=== PATIENT | female | born 1970 | race Caucasian/White ===

== ENCOUNTER → 2017-04-28 | Outpatient (CLI) | payer BC ==
[2017-04-28 13:22] LABS: Anisocytosis Slight; Basophils # (A) 0.1 k/uL (0-0.2); Basophils % (A) 1 %; CH 24.7; CHCM 30.5; Eosinophils # (A) 0.2 k/uL (0-0.7); Eosinophils % (A) 2 %; HCT 37.8 % (34.0-46.0); HDW 3.33; HGB 11.2 gm/dL (11.4-16.0); Hypochromasia Marked; Luc # (Auto) 0.22; Luc % (Auto) 2; Lymphocytes # (A) 2.2 k/uL (1.0-4.8); Lymphocytes % (A) 21 %; MCH 24.1 pg (25.0-35.0); MCHC 29.5 g/dL (31.0-37.0); MCV 81.5 fL (80.0-100.0); Mean Platelet Volume 7.6; Monocytes # (A) 0.6 k/uL (0-1.0); Monocytes % (A) 5 %; Neutrophils # (A) 7.5 k/uL (1.3-7.7); Neutrophils % (A) 70 %; RBC 4.64 m/uL (3.80-5.40); RDW 17.3 % (11.5-15.5); WBC 10.8 k/uL (3.8-10.6); WBC (Perox) 10.69
== END | disposition home or self-care (01) ==
LOC: LABPAT 12:00
PROVIDERS: ATTEND Obstetrics & Gynecology
DX: Z01.810 Encounter for preprocedural cardiovascular examination (principal); Z01.812 Encounter for preprocedural laboratory examination; I10 Essential (primary) hypertension; N92.0 Excessive and frequent menstruation with regular cycle
CPT/HCPCS: 85025; 93005

== ENCOUNTER 2017-05-09 08:43 | Day surgery (SDC) | payer BC ==
[2017-05-02 08:43] VITALS: BMI 56.2
--- NOTE | 2017-05-08 12:50 | HP ---
HISTORY AND PHYSICAL This is a 46-year-old, white female, 2, para 2, 0-0-1 who presents for NovaSure endometrial ablation along with hysteroscopy. The patient has had a tubal ligation. Menses are regular, occurring every 28-30 days, but last up to 8 days in duration, very heavy with clot passage. Endometrial biopsy has been performed in the office and is within normal limits. Risks, benefits and alternatives of this plan have been reviewed, information in terms of literature has been provided and reviewed, second opinion has been offered and declined. PAST MEDICAL HISTORY: Significant for hypertension. PAST SURGICAL HISTORY: Knee surgery 2005, tubal ligation, 1993. CURRENT MEDICATIONS: 1. Hyzaar daily. 2. Toprol-XL daily. ALLERGIES: INCLUDE BACTRIM TO WHICH REPORTS HIVES AND CANNOT BREATHE, CIPROFLOXACIN TO WHICH REPORTS HIVES AND FEELS LIKE NEEDLES IN THE FACE, AND MOBIC TO WHICH REPORTS A REDDENED FACE, PENICILLIN TO WHICH REPORTS HIVES AND SWELLING AND NOT BEING ABLE TO BREATHE, STEROIDS TO WHICH REPORTS HIVES AND NOT BEING ABLE TO BREATHE, AND SULFA DRUGS TO WHICH SHE REPORTS THE SAME REACTION. FAMILY HISTORY: Significant for hypertension. REPRODUCTIVE HISTORY: Normal spontaneous vaginal deliveries x2, female infants, 1992 in 1993, both uncomplicated. SOCIAL HISTORY: Patient drinks 2 cups of coffee daily. He has never been a tobacco smoker, denies alcohol or drug use. EXAM: This is a pleasant female, 5 foot 2 inches, 298 pounds, blood pressure 140/86. HEENT exam reveals good dentition, no thyromegaly, no cervical lymphadenopathy. CHEST: Clear to auscultation in all jerome anteriorly and posteriorly. The breasts are bilaterally symmetric to inspection with no skin dimpling, nipple discharge, axillary adenopathy or discernible lesions or masses. Extremities reveal no edema. Abdomen is obviously obese, no organosplenomegaly, no CVA tenderness. On pelvic exam, cervix is multiparous, uterus is small, anteverted, anteflexed, adnexa are negative bilaterally, smooth mobile and nontender, small and bilaterally symmetric. IMPRESSION: Dysmenorrhea, and menorrhagia, patient wishing NovaSure ablation and hysteroscopy. PLAN: All risks and benefits of this procedure have been reviewed in detail. We discussed the risks of anesthesia, aspiration, nerve damage, or even . The risk of uterine perforation, infection, bleeding, damage to the cervix, failure of the procedure all discussed. All questions answered and literature provided for the patient's thorough review. MMODL / IJN: [id number] /
[~2017-05-09 08:43] MED LIST: DEXAMETHASONE SOD PHOSPHATE 10 MG/ML 1 ML VIAL IV ONE; HYDROmorphone 0.5 MG/0.5 ML SYRINGE IVP PRN; LACTATED RINGERS 1,000 ML IV SCH; ONDANSETRON 4 MG/2 ML VIAL IVP ONE; Pre Op ABX Message 1 EACH MISC MISCELLANE ONE
[2017-05-09] MEDS ORDERED: LIDOCAINE 1% 20 ML VIAL (10MG/ML) FOR IV START INTRADERMA ONE (09:57)
[2017-05-09] MEDS ORDERED: PROPOFOL 10 MG/ML 20 ML VIAL IV ONE (10:12)
[2017-05-09] MEDS ORDERED: fentaNYL (PF) 50 MCG/ML 2 ML AMP ONE (10:12)
[2017-05-09] MEDS ORDERED: LIDOCAINE 1% INJ 10MG/ML (20 ML MDV) ONE (10:12)
[2017-05-09] MEDS ORDERED: KETOROLAC 30 MG/ML 1 ML VIAL ONE (10:12)
[2017-05-09] MEDS ORDERED: SUCCINYLCHOLINE CHLORIDE VIAL 200 MG/10 ML VIAL IV ONE (10:12)
[2017-05-09] MEDS ORDERED: MIDAZOLAM 2 MG/2 ML VIAL ONE (10:12)
--- NOTE | 2017-05-09 10:36 | P.OP ---
Date of Procedure: 05/09/17 Preoperative Diagnosis: Menorrhagia Postoperative Diagnosis: Same Procedure(s) Performed: Hysteroscopy, NovaSure ablation Anesthesia: ERUM Surgeon: Pamella Palacios Estimated Blood Loss (ml): 5 IV fluids (ml): 300 Urine output (ml): 100 Pathology: none sent Condition: stable Disposition: PACU Description of Procedure: Patient is brought to the [facility] and suite where a general anesthetic is administered without difficulty. The appropriate timeout is performed to assure proper patient and procedural identification. Urine hCG is negative. Bladder is drained for approximately 100 mL of clear yellow urine. Perineal body is prepped and draped in usual sterile fashion. Examination under anesthesia reveals an anteverted uterus that is mobile and small, negative adnexa bilaterally. Uterus sounds to a depth of 8 cm. Cervix is gently and systematically dilated using Hanks dilators. The hysteroscope was introduced and the cavity is distended. The cavity is noted to contain a small amount of proliferative-type appearing tissue, no obvious polyps septa or defects. Hysteroscope was removed. Cervix is then dilated fully. The NovaSure wand is placed and seated properly. Uterine length of 6.0 cm, width of 2.7 cm is noted. For 99 seconds with a power of 89 W the procedure is carried out. When it is completed, the wand is reduced and removed. Hysteroscope is reintroduced and the cavity is once again distended. The cavity is noted to be uniformly blanched consistent with thorough procedure. Toradol is given prior to leaving the operative suite. MENTATION is removed. All sponge needle and enhancement counts are correct. Patient is brought back to recovery room in stable condition with a blood pressure of 99/43, pulse 53, 99% O2 saturation. Competitions none.
[2017-05-09 10:57] VITALS: TEMP 98.6
[2017-05-09 12:56] VITALS: BP 127/60; PULSE 55; RESP 20
== END 2017-05-09 13:01 | disposition home or self-care (01) ==
LOC: OR 08:43
PROVIDERS: ATTEND Obstetrics & Gynecology
DX: N92.0 Excessive and frequent menstruation with regular cycle (principal); N94.6 Dysmenorrhea, unspecified; I10 Essential (primary) hypertension; E66.01 Morbid (severe) obesity due to excess calories; Z68.43 Body mass index [BMI] 50.0-59.9, adult; Z79.899 Other long term (current) drug therapy; Z88.1 Allergy status to other antibiotic agents; Z88.0 Allergy status to penicillin; Z88.2 Allergy status to sulfonamides; Z82.49 Family history of ischemic heart disease and other diseases of the circulatory system; Z98.51 Tubal ligation status
CPT/HCPCS: 58563; 81025; J2250; J0330; J1100; J2405; J2001; J3010; J1885; J2704; J1170

== ENCOUNTER → 2018-09-04 | Outpatient (CLI) | payer BC ==
--- NOTE | 2018-09-04 12:52 | MM ---
Reason for exam: screening (asymptomatic). Baseline mammogram. History: Family history of breast cancer in sister at age 40. Physical Findings: Nurse did not find any significant physical abnormalities on exam. MG Screening Mammo w CAD Bilateral CC and MLO view(s) were taken. The breast tissue is heterogeneously dense. This may lower the sensitivity of mammography. There are benign appearing round calcifications in the left breast. There is chronic nodularity in the left breast upper outer quadrant middle depth. These results were verbally communicated with the patient and result sheet given to the patient on 09/04/18. ASSESSMENT: Incomplete: need additional imaging evaluation, BI-RAD 0 RECOMMENDATION: Ultrasound of the left breast.
--- NOTE | 2018-09-04 12:55 | USB ---
Reason for exam: additional evaluation requested from abnormal screening. History: Family history of breast cancer in sister at age 40. Physical Findings: Breast exam preformed at baseline screening. US Breast Workup Limited LT Left limited breast ultrasound including focal area of concern, retroareolar and axilla demonstrates a 0.7 x 0.5 x 0.5cm oval, taller than wide, hypoechoic lesion at 12 o'clock for which a biopsy is recommended, a 1.1 x 1.8 x 0.5cm oval, solid, benign lymph node at 1 o'clock and a 0.5 x 0.3 x 0.4cm cystic lesion at 2 o'clock. These results were verbally communicated with the patient and result sheet given to the patient on 09/04/18. ASSESSMENT: Suspicious, BI-RAD 4 RECOMMENDATION: Ultrasound core biopsy of the left breast. Called Dr. Medrano with mammographic findings and has scheduled an appointment for the patient for 09/14/18 at 9:[address] Egan. Biopsy scheduled for 09/26/18 at 12:20. PRELIMINARY REPORT CALLED AND FAXED TO DR. EGAN ON 09/04/18.
== END | disposition home or self-care (01) ==
LOC: RADMAMWWP 09:17
PROVIDERS: ATTEND Nurse Practitioner Family
DX: Z12.31 Encounter for screening mammogram for malignant neoplasm of breast (principal); R92.8 Other abnormal and inconclusive findings on diagnostic imaging of breast
CPT/HCPCS: 77067

== ENCOUNTER → 2018-09-14 | Outpatient (CLI) | payer BC ==
[2018-09-14 09:35] VITALS: BP 166/85; PULSE 75; RESP 18; TEMP 96.5; BMI 43.8
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
== END | disposition home or self-care (01) ==
LOC: WWCWWP 09:07
PROVIDERS: ATTEND Surgery
DX: Z53.9 Procedure and treatment not carried out, unspecified reason (principal)

== ENCOUNTER → 2018-09-26 | Day surgery (SDC) | payer BC ==
[2018-09-26 12:28] VITALS: RESP 16
--- NOTE | 2018-09-26 14:01 | USB ---
EXAMINATION TYPE: US breast needle loc LT DATE OF EXAM: 09/26/2018 COMPARISON: Ultrasound 09/04/2018 CLINICAL HISTORY: R92.8 ABNORMAL MAMMOGRAM. Abnormal ultrasound Technique: Real-time linear array sonography the hypodensity is reidentified in the left breast 12:00 posterior position. This currently measures approximately 0.6 cm x 0.7 x 0.6 cm this appears to have some through transmission and potentially could be a cyst. Cyst aspiration reattempted. If unsuccessful core biopsy will be performed. The procedure was explained to the patient, cyst aspiration and core biopsy. All questions were answered. Verbal informed consent was obtained. Timeout was performed Skin was cleansed with Betadine and sterilely draped in standard manner. The skin and deeper breast tissue was anesthetized with 1% lidocaine with sodium bicarbonate. Under ultrasound guidance an 18-gauge needle was advanced into the anechoic lesion. The contents were aspirated. The area appeared to collapse completely during the aspiration. Contents were transferred to pathology for additional evaluation. Coil Clip was placed at the cyst aspiration site. Discharge instructions were discussed with the patient. The patient tolerated the procedure very well. Patient will follow-up with her referring physician for results. Postprocedure mammogram: Mammogram was obtained. Clip is in the mid breast on these images. Impressions: 1. Successful ultrasound-guided cyst aspiration. Recommendations 1. Recommendations are pending pathology results. IMPRESSION: Pathology Results: Benign LEFT BREAST, ULTRASOUND GUIDED ASPIRATION: Minimally cellular specimen consisting of widely scattered macrophages, degenerated cellular material and a fragment of adipose tissue. Non-diagnostic. Recommendation Follow up mammogram and ultrasound of the left breast in 6 months. APOLONIA
--- NOTE | 2018-09-26 14:03 | MM ---
EXAMINATION TYPE: US breast aspiration single LT DATE OF EXAM: 09/26/2018 COMPARISON: Ultrasound 09/04/2018 CLINICAL HISTORY: R92.8 ABNORMAL MAMMOGRAM. Abnormal ultrasound Technique: Real-time linear array sonography the hypodensity is reidentified in the left breast 12:00 posterior position. This currently measures approximately 0.6 cm x 0.7 x 0.6 cm this appears to have some through transmission and potentially could be a cyst. Cyst aspiration reattempted. If unsuccess ful core biopsy will be performed. The procedure was explained to the patient, cyst aspiration and core biopsy. All questions were answe red. Verbal informed consent was obtained. Timeout was performed Skin was cleansed with Betadine and sterilely draped in standard manner. The skin and deeper breast t issue was anesthetized with 1% lidocaine with sodium bicarbonate. Under ultrasound guidance an 18-gau ge needle was advanced into the anechoic lesion. The contents were aspirated. The area appeared to co llapse completely during the aspiration. Contents were transferred to pathology for additional evalua tion. Coil Clip was placed at the cyst aspiration site. Discharge instructions were discussed with the patient. The patient tolerated the procedure very well . Patient will follow-up with her referring physician for results. Postprocedure mammogram: Mammogram was obtained. Clip is in the mid breast on these images. This appe ars to be at a rounded density on the Comparison Mammogram of 09/04/2018. Impressions: 1. Successful ultrasound-guided cyst aspiration. Recommendations 1. Recommendations are pending pathology results.
[2018-09-26 14:09] VITALS: BP 116/76; PULSE 64; TEMP 97.5
== END ==
LOC: RADUSWWP 12:16
PROVIDERS: ATTEND Surgery
DX: N60.02 Solitary cyst of left breast (principal)
CPT/HCPCS: 19285; 88108; 88305; 77065; J2001; 76942

== ENCOUNTER → 2018-10-04 | Outpatient (CLI) | payer BC ==
[2018-10-04 13:46] VITALS: BP 135/88; PULSE 66; RESP 16; TEMP 97.6; BMI 43.8
--- NOTE | 2018-10-04 14:10 | P.PN ---
Subjective Progress Note Date: 10/04/18 Principal diagnosis: Rosaura is a 48-year-old white female who is status post ultrasound-guided aspiration of the left breast lesion on . Pathology revealed a minimally cellular specimen consisting of widely scattered macrophages, degenerative cellular material, and a segment of adipose tissue. This was nondiagnostic but non-malignant. The patient has no complaints related to the procedure. After this evaluation was performed 5 year risk: 2.4% Lifetime risk was: 20.2% this evaluation was considering the ultrasound aspiration as a biopsy of this is less if this is not considered a biopsy Family history: Sr.: Breast cancer in her 40s she has had cancer in both breasts and now in her bones Father: Prostate cancer Medical history: Hypertension Objective - Vital Signs Vital signs: Vital Signs Temp 97.6 F 10/04/18 13:43 Pulse 66 10/04/18 13:43 Resp 16 10/04/18 13:43 BP 135/88 10/04/18 13:43 Pulse Ox 100 10/04/18 13:43 - Constitutional General appearance: Present: obese - EENT Eyes: Present: EOMI - Neck Neck: Present: normal ROM - Respiratory Respiratory: bilateral: CTA - Cardiovascular Rhythm: regular Heart sounds: normal: S1, S2 - Integumentary Integumentary: Present: normal turgor - Psychiatric Psychiatric: Present: A&O x's 3, appropriate affect, intact judgment & insight - Additional findings Additional findings: Examination of the left breast biopsy site reveals mild ecchymosis otherwise clean and dry Assessment and Plan Assessment: Impression: 1. Status post ultrasound-guided aspiration left breast lesion pathology benign 2. Fibrocystic breast changes 3. Strong family history of breast cancer sister with breast cancer in her 40s 4. No evidence of breast cancer at this time Plan: 1. I discussed the patient is a high risk for breast cancer given her the option of genetic counseling at this time she is declining 2. Repeat ultrasound and mammogram of the left breast in 6 months 3. Follow-up with me in 6 months CC: Dr. Urbina
== END | disposition home or self-care (01) ==
LOC: WWCWWP 13:26
PROVIDERS: ATTEND Surgery
DX: Z53.9 Procedure and treatment not carried out, unspecified reason (principal)

== ENCOUNTER 2018-11-29 12:07 | Emergency (ER) | payer BC ==
[2018-11-29 12:18] VITALS: RESP 18; TEMP 98.2
[2018-11-29] MEDS ORDERED: SODIUM CHLORIDE 0.9% 1,000 ML IV STA (12:28)
[2018-11-29] MEDS ORDERED: ONDANSETRON 4 MG/2 ML VIAL IVP STA (12:36)
[2018-11-29] MEDS ORDERED: MORPHINE SULFATE 4 MG/ML SYRINGE IVP STA (12:36)
--- NOTE | 2018-11-29 12:49 | ED ---
Abdominal Pain HPI - General Chief Complaint: Abdominal Pain Stated Complaint: Abd pain Time Seen by Provider: 11/29/18 12:22 Source: patient, RN notes reviewed Mode of arrival: ambulatory Limitations: no limitations - History of Present Illness Initial Comments: 48-year-old female presents emergency Department with chief complaint of abdominal pain. Patient states pain started earlier this week has progressed. Patient did see PCP today who sent for lab work and CT of abdomen and pelvis dialysis for Bactrim so recommend come emergency department. Patient states that the pain is diffuse in nature radiates to her back. There is no focal abdominal pain. Denies any nausea vomiting diarrhea constipation or fevers or chills. Patient has no dysuria or hematuria. Patient had prior tubal ligation exploratory laparotomy no other abdominal surgeries. Denies any sick contacts no chest pain or shortness of breath - Related Data Home Medications Medication Instructions Recorded Confirmed Losartan/Hydrochlorothiazide 1 tab PO DAILY 05/02/17 11/29/18 [Hyzaar 100-25 Tablet] Metoprolol Succinate (ER) [Toprol 50 mg PO DAILY 05/02/17 11/29/18 Xl] Atorvastatin [Lipitor] 10 mg PO DAILY 09/14/18 11/29/18 Previous Rx's Medication Instructions Recorded Hydrocodone/Acetaminophen [Sunflower 1 tab PO Q6HR PRN #12 tab 11/29/18 5-325] Allergies Allergy/AdvReac Type Severity Reaction Status Date / Time banana Allergy Unknown Verified 11/29/18 13:46 ciprofloxacin [From Cipro] Allergy "felt like Verified 11/29/18 13:46 needles under skin" Penicillins Allergy Rash/Hives Verified 11/29/18 13:46 Sulfa (Sulfonamide Allergy "felt like Verified 11/29/18 13:46 Antibiotics) needles under skin" sulfamethoxazole Allergy "felt like Verified 11/29/18 13:46 [From Bactrim] needles under skin" trimethoprim [From Bactrim] Allergy "felt like Verified 11/29/18 13:46 needles under skin" Review of Systems ROS Statement: Those systems with pertinent positive or pertinent negative responses have been documented in the HPI. ROS Other: All systems not noted in ROS Statement are negative. Past Medical History Past Medical History: Hypertension, Osteoarthritis (OA) Additional Past Medical History / Comment(s): heavy, frequent periods History of Any Multi-Drug Resistant Organisms: None Reported Past Surgical History: Orthopedic Surgery, Tubal Ligation, Uterine Ablation Additional Past Surgical History / Comment(s): arthroscopy knee Past Anesthesia/Blood Transfusion Reactions: No Reported Reaction Past Psychological History: No Psychological Hx Reported Smoking Status: Never smoker Past Alcohol Use History: Occasional Past Drug Use History: None Reported - Past Family History Sister(s) Family Medical History: Cancer Father Family Medical History: Cancer General Exam Limitations: no limitations General appearance: alert, in no apparent distress Head exam: Present: atraumatic, normocephalic, normal inspection Neck exam: Present: normal inspection, full ROM. Absent: tenderness, meningismus, lymphadenopathy Respiratory exam: Present: normal lung sounds bilaterally. Absent: respiratory distress, wheezes, rales, rhonchi, stridor Cardiovascular Exam: Present: regular rate, normal rhythm, normal heart sounds. Absent: systolic murmur, diastolic murmur, rubs, gallop, clicks GI/Abdominal exam: Present: soft, tenderness (Diffuse moderate), normal bowel sounds. Absent: distended, guarding, rebound, rigid Back exam: Absent: CVA tenderness (R), CVA tenderness (L) Skin exam: Present: warm, dry, intact, normal color. Absent: rash Course Vital Signs 11/29/18 11/29/18 11/29/18 12:16 15:45 16:00 Temperature 98.2 F Pulse Rate 74 84 Respiratory 18 18 18 Rate Blood Pressure 155/97 140/82 O2 Sat by Pulse 98 99 Oximetry Medical Decision Making - Medical Decision Making 48-year-old female presents emergency department for abdominal pain CT was obtained along with lab work CT shows bulky fibroid uterus, Ultram was recommended and ordered. Ultrasound shows thickened endometrial lining and will need follow-up with [facility]. She has seen Dr. sheth in the past and she states that she can schedule an appointment. Patient discharged with pain medication. Return parameters discussed. - Lab Data Result diagrams: 11/29/18 13:20 11/29/18 13:20 Lab Results 11/29/18 11/29/18 11/29/18 Range/Units 13:20 13:20 13:20 WBC 10.9 H (3.8-10.6) k/uL RBC 4.41 (3.80-5.40) m/uL Hgb 13.9 (11.4-16.0) gm/dL Hct 41.4 (34.0-46.0) % MCV 94.1 (80.0-100.0) fL MCH 31.6 (25.0-35.0) pg MCHC 33.6 (31.0-37.0) g/dL RDW 13.2 (11.5-15.5) % Plt Count 283 (150-450) k/uL Neutrophils % 75 % Lymphocytes % 16 % Monocytes % 5 % Eosinophils % 2 % Basophils % 1 % Neutrophils # 8.2 H (1.3-7.7) k/uL Lymphocytes # 1.7 (1.0-4.8) k/uL Monocytes # 0.5 (0-1.0) k/uL Eosinophils # 0.2 (0-0.7) k/uL Basophils # 0.1 (0-0.2) k/uL Sodium 138 (137-145) mmol/L Potassium 3.8 (3.5-5.1) mmol/L Chloride 104 (98-107) mmol/L Carbon Dioxide 26 (22-30) mmol/L Anion Gap 8 mmol/L BUN 14 (7-17) mg/dL Creatinine 0.82 (0.52-1.04) mg/dL Est GFR (CKD-EPI)AfAm >90 (>60 ml/min/1.73 sqM) Est GFR (CKD-EPI)NonAf 86 (>60 ml/min/1.73 sqM) Glucose 85 (74-99) mg/dL Plasma Lactic Acid Fabiano (0.7-2.0) mmol/L Calcium 9.3 (8.4-10.2) mg/dL Total Bilirubin 0.8 (0.2-1.3) mg/dL AST 38 H (14-36) U/L ALT 46 (9-52) U/L Alkaline Phosphatase 98 (38-126) U/L Total Protein 7.3 (6.3-8.2) g/dL Albumin 4.1 (3.5-5.0) g/dL Amylase 47 (30-110) U/L Lipase 124 (23-300) U/L Urine Color Yellow Urine Appearance Cloudy H (Clear) Urine pH 7.0 (5.0-8.0) Ur Specific [place] 1.012 (1.001-1.035) Urine Protein Negative (Negative) Urine Glucose (UA) Negative (Negative) Urine Ketones Negative (Negative) Urine Blood Moderate H (Negative) Urine Nitrite Negative (Negative) Urine Bilirubin Negative (Negative) Urine Urobilinogen <2.0 (<2.0) mg/dL Ur Leukocyte Esterase Large H (Negative) Urine RBC 1 (0-5) /hpf Urine WBC 21 H (0-5) /hpf Ur Squamous Epith Cells 27 H (0-4) /hpf Urine Bacteria Occasional H (None) /hpf 11/29/18 Range/Units 13:20 WBC (3.8-10.6) k/uL RBC (3.80-5.40) m/uL Hgb (11.4-16.0) gm/dL Hct (34.0-46.0) % MCV (80.0-100.0) fL MCH (25.0-35.0) pg MCHC (31.0-37.0) g/dL RDW (11.5-15.5) % Plt Count (150-450) k/uL Neutrophils % % Lymphocytes % % Monocytes % % Eosinophils % % Basophils % % Neutrophils # (1.3-7.7) k/uL Lymphocytes # (1.0-4.8) k/uL Monocytes # (0-1.0) k/uL Eosinophils # (0-0.7) k/uL Basophils # (0-0.2) k/uL Sodium (137-145) mmol/L Potassium (3.5-5.1) mmol/L Chloride (98-107) mmol/L Carbon Dioxide (22-30) mmol/L Anion Gap mmol/L BUN (7-17) mg/dL Creatinine (0.52-1.04) mg/dL Est GFR (CKD-EPI)AfAm (>60 ml/min/1.73 sqM) Est GFR (CKD-EPI)NonAf (>60 ml/min/1.73 sqM) Glucose (74-99) mg/dL Plasma Lactic Acid Fabiano 0.8 (0.7-2.0) mmol/L Calcium (8.4-10.2) mg/dL Total Bilirubin (0.2-1.3) mg/dL AST (14-36) U/L ALT (9-52) U/L Alkaline Phosphatase (38-126) U/L Total Protein (6.3-8.2) g/dL Albumin (3.5-5.0) g/dL Amylase (30-110) U/L Lipase (23-300) U/L Urine Color Urine Appearance (Clear) Urine pH (5.0-8.0) Ur Specific [place] (1.001-1.035) Urine Protein (Negative) Urine Glucose (UA) (Negative) Urine Ketones (Negative) Urine Blood (Negative) Urine Nitrite (Negative) Urine Bilirubin (Negative) Urine Urobilinogen (<2.0) mg/dL Ur Leukocyte Esterase (Negative) Urine RBC (0-5) /hpf Urine WBC (0-5) /hpf Ur Squamous Epith Cells (0-4) /hpf Urine Bacteria (None) /hpf Disposition Clinical Impression: Abdominal pain, Fibroid uterus, Thickened endometrium Disposition: HOME SELF-CARE Condition: Stable Instructions (If sedation given, give patient instructions): Abdominal Pain (ED) Additional Instructions: Please return to the Emergency Department if symptoms worsen or any other concerns. Prescriptions: Hydrocodone/Acetaminophen [Sunflower 5-325] 1 tab PO Q6HR PRN #12 tab PRN Reason: Pain Is patient prescribed a controlled substance at d/c from ED?: Yes When asked, does pt state using other controlled substances?: No If prescribed controlled substance>3 days was MAPS reviewed?: Prescribed <3 Days If opioid is for acute pain is fill amount 7 days or less?: Yes If Rx opioid, was Start Talking consent form obtained?: Yes Referrals: Daryn Urbina MD [Primary Care Provider] - 1-2 days Time of Disposition: 16:24
[2018-11-29 13:39] LABS: Basophils # (A) 0.1 k/uL (0-0.2); Basophils % (A) 1 %; Eosinophils # (A) 0.2 k/uL (0-0.7); Eosinophils % (A) 2 %; HCT 41.4 % (34.0-46.0); HGB 13.9 gm/dL (11.4-16.0); Lymphocytes # (A) 1.7 k/uL (1.0-4.8); Lymphocytes % (A) 16 %; MCH 31.6 pg (25.0-35.0); MCHC 33.6 g/dL (31.0-37.0); MCV 94.1 fL (80.0-100.0); Mean Platelet Volume 6.7; Monocytes # (A) 0.5 k/uL (0-1.0); Monocytes % (A) 5 %; Neutrophils # (A) 8.2 k/uL (1.3-7.7); Neutrophils % (A) 75 %; Platelet Count 283 k/uL (150-450); RBC 4.41 m/uL (3.80-5.40); RDW 13.2 % (11.5-15.5); WBC 10.9 k/uL (3.8-10.6)
[2018-11-29 13:44] LABS: Appearance,Urine Cloudy (Clear); Bacteria,Urine Occasional /hpf; Bilirubin,Urine Negative (Negative); Blood,Urine Moderate (Negative); Color,Urine Yellow; Glucose,Urine (UA) Negative (Negative); Ketones,Urine Negative (Negative); Leukocyte Esterase,Urine Large (Negative); Nitrite,Urine Negative (Negative); Protein,Urine Negative (Negative); RBC,Urine 1 /hpf (0-5); Specific Gravity,Urine 1.012 (1.001-1.035); Squamous Epithelial Cell,Urine 27 /hpf (0-4); Urobilinogen,Urine <2.0 mg/dL (<2.0); WBC,Urine 21 /hpf (0-5)
[2018-11-29 13:53] LABS: ALT 46 U/L (9-52); AST 38 U/L (14-36); Albumin 4.1 g/dL (3.5-5.0); Alkaline Phosphatase 98 U/L (38-126); Amylase 47 U/L (30-110); Anion Gap 8 mmol/L; Blood Urea Nitrogen 14 mg/dL (7-17); Calcium 9.3 mg/dL (8.4-10.2); Carbon Dioxide 26 mmol/L (22-30); Chloride 104 mmol/L (98-107); Glucose 85 mg/dL (74-99); Lipase 124 U/L (23-300); Potassium 3.8 mmol/L (3.5-5.1); Sodium 138 mmol/L (137-145); Total Bilirubin 0.8 mg/dL (0.2-1.3); Total Protein 7.3 g/dL (6.3-8.2)
[2018-11-29] MEDS ORDERED: HYDROmorphone 0.5 MG/0.5 ML SYRINGE IVP STA (14:11)
--- NOTE | 2018-11-29 14:46 | CT ---
EXAMINATION TYPE: CT abdomen pelvis w con DATE OF EXAM: 11/29/2018 HISTORY: Abdominal pain CT DLP: 1677mGycm Automated Exposure Control for Dose Reduction was Utilized. CONTRAST: CT scan of the abdomen and pelvis is performed with IV Contrast, patient injected with 100 ml mL of I sovue 300. COMPARISON: None. FINDINGS: LUNG BASES: Strand-like bibasilar subsegmental atelectasis. LIVER/GB: No significant abnormality is appreciated. PANCREAS: No significant abnormality is seen. SPLEEN: No significant abnormality is seen. ADRENALS: No significant abnormality is seen. KIDNEYS: Kidneys enhance and excrete symmetrically without hydronephrosis. BOWEL: Incidentally noted descending duodenal diverticulum. Appendix is air-filled and within normal limits. There is air-fluid level seen in the terminal ileum and mild distention measuring up to 2.9 c m, upper limits of normal. Remainder of the loops of small bowel demonstrate no prominence. Colon is decompressed other than the cecum. UTERUS/ADNEXA: The uterus is bulky and heterogenous suggesting underlying fibroid change. Additionall y endometrial thickness appears upper limits of normal. Small amount of right adnexal free fluid is s een. There is haziness surrounding the adnexa but also may represent a scant amount of fluid. This ab uts the nondilated appendix. LYMPH NODES: No greater than 1cm abdominal or pelvic lymph nodes are appreciated. OSSEOUS STRUCTURES: No significant abnormality is seen. IMPRESSION: 1. Bulky likely fibroid uterus and prominent endometrial thickness that should be further assessed wi th pelvic ultrasound. Scant right adnexal fluid and minimal inflammatory fat stranding abuts the air- filled nondilated appendix. Acute appendicitis is not suspected on CT although correlation with physi maria isabel exam is recommended. 3. Prominent fluid-filled terminal ileum may represent an incompetent ileocecal valve with reflux or ileus. No evidence of bowel obstruction.
[2018-11-29] MEDS ORDERED: KETOROLAC 30 MG/ML 1 ML VIAL IM STA (15:55)
[2018-11-29] MEDS ORDERED: KETOROLAC 30 MG/ML 1 ML VIAL IVP STA (16:01)
--- NOTE | 2018-11-29 16:05 | US ---
EXAMINATION TYPE: US pelvis complete transvag DATE OF EXAM: 11/29/2018 COMPARISON: NONE CLINICAL HISTORY: Pain. TECHNIQUE: . Transabdominal sonographic images of the pelvis were acquired. Transvaginal sonographi c images were medically necessary to better assess the following anatomy: Date of LMP: EXAM MEASUREMENTS: Uterus: 13.3 x 6.8 x 9.6 cm Endometrial Stripe: 2.5 cm Right Ovary: Obscured by overlying bowel gas, obesity Left Ovary: Obscured by overlying bowel gas, obesity Patient of large body habitus. Technically difficult and limited study. 1. Uterus: bulky, fibroid measuring 2.6 x 1.9 x 1.7cm, nabothians noted in cervix, limited visualiz ation 2. Endometrium: thickened 3. Right Ovary: Obscured by overlying bowel gas, obesity 4. Left Ovary: Obscured by overlying bowel gas, obesity 5. Bilateral Adnexa: wnl 6. Posterior cul-de-sac: wnl IMPRESSION: There is abnormal endometrial thickening, recommend [facility] [employer] COORDINATOR consult, consideration for endome trial biopsy. There is a fibroid uterus. Exam is limited technically.
[2018-11-29 16:06] VITALS: BP 140/82; PULSE 84
== END 2018-11-29 16:40 | disposition home or self-care (01) ==
LOC: EC 12:07
DX: D25.9 Leiomyoma of uterus, unspecified (principal); R93.89 Abnormal findings on diagnostic imaging of other specified body structures; R10.84 Generalized abdominal pain; I10 Essential (primary) hypertension; M19.90 Unspecified osteoarthritis, unspecified site; Z79.899 Other long term (current) drug therapy; Z91.018 Allergy to other foods; Z88.0 Allergy status to penicillin; Z88.1 Allergy status to other antibiotic agents; Z88.2 Allergy status to sulfonamides; Z98.51 Tubal ligation status
CPT/HCPCS: 36415; 80053; 82150; 83605; 83690; 85025; 81001; 76856; 76830; 74177; 99284; 96374; 96375 ×3; 96361 ×3; J2270; J2405; J1885; J1170; Q9967

== ENCOUNTER → 2018-12-24 | Outpatient (CLI) | payer BC ==
[2018-12-24 13:38] LABS: Potassium 4.2 mmol/L (3.5-5.1)
[2018-12-24 14:00] LABS: Basophils # (A) 0.1 k/uL (0-0.2); Basophils % (A) 1 %; Eosinophils # (A) 0.2 k/uL (0-0.7); Eosinophils % (A) 2 %; HCT 44.1 % (34.0-46.0); HGB 14.7 gm/dL (11.4-16.0); Lymphocytes % (A) 23 %; MCHC 33.4 g/dL (31.0-37.0); MCV 92.9 fL (80.0-100.0); Mean Platelet Volume 7.7; Monocytes # (A) 0.5 k/uL (0-1.0); Monocytes % (A) 5 %; Neutrophils # (A) 6.1 k/uL (1.3-7.7); Neutrophils % (A) 68 %; Platelet Count 277 k/uL (150-450); RBC 4.75 m/uL (3.80-5.40); RDW 13.9 % (11.5-15.5)
== END ==
LOC: LABPAT 12:45
PROVIDERS: ATTEND Obstetrics & Gynecology
DX: Z01.818 Encounter for other preprocedural examination (principal); Z01.812 Encounter for preprocedural laboratory examination; I10 Essential (primary) hypertension; N94.6 Dysmenorrhea, unspecified; N80.0 Endometriosis of uterus; D25.9 Leiomyoma of uterus, unspecified
CPT/HCPCS: 36415; 80051; 82565; 82947; 84520; 85025; 87086; 93005

== ENCOUNTER 2019-01-01 05:54 | Observation (INO) | payer BC ==
[~2019-01-01 05:54] MED LIST changes: -DEXAMETHASONE SOD PHOSPHATE 10 MG/ML 1 ML VIAL IV ONE; -HYDROmorphone 0.5 MG/0.5 ML SYRINGE IVP PRN; -LACTATED RINGERS 1,000 ML IV SCH; -ONDANSETRON 4 MG/2 ML VIAL IVP ONE; -Pre Op ABX Message 1 EACH MISC MISCELLANE ONE; +ceFAZolin IN SWFI 2 GM/20 ML SYRINGE IVP ONE
[2019-01-01] MEDS: LACTATED RINGERS 1,000 ML IV SCH ×2 (06:30→23:14)
[2019-01-01] MEDS ORDERED: LIDOCAINE 1% 20 ML VIAL (10MG/ML) FOR IV START INTRADERMA ONE (06:31)
[2019-01-01] MEDS ORDERED: HYDROmorphone 0.5 MG/0.5 ML SYRINGE IVP PRN (06:34)
[2019-01-01] MEDS ORDERED: NALOXONE 0.4 MG/ML 1 ML VIAL IV PRN (06:34)
[2019-01-01] MEDS ORDERED: ONDANSETRON 4 MG/2 ML VIAL IVP PRN ×2 (06:34→08:54)
[2019-01-01] MEDS ORDERED: diphenhydrAMINE 50 MG/ML 1 ML VIAL IVP PRN ×2 (06:34→08:54)
[2019-01-01] MEDS ORDERED: MIDAZOLAM (PF) 2 MG/2 ML VIAL IV ONE (06:40)
[2019-01-01] MEDS ORDERED: fentaNYL (PF) 50 MCG/ML 2 ML AMP IV ONE (06:40)
[2019-01-01] MEDS ORDERED: ONDANSETRON 4 MG/2 ML VIAL IVP ONE (06:53)
[2019-01-01] MEDS ORDERED: DEXAMETHASONE SOD PHOS (MDV) 100 MG/10 ML VIAL IV ONE (06:54)
[2019-01-01] MEDS ORDERED: ROCURONIUM BROMIDE 10 MG/ML 10 ML VIAL IV ONE (07:25)
[2019-01-01] MEDS ORDERED: SUCCINYLCHOLINE CHLORIDE 100 MG/5 ML SYR IV ONE (07:25)
[2019-01-01] MEDS ORDERED: MIDAZOLAM 2 MG/2 ML VIAL ONE (07:25)
[2019-01-01] MEDS ORDERED: GLYCOPYRROLATE 0.2 MG/ML 2 ML VIAL ONE (07:25)
[2019-01-01] MEDS ORDERED: fentaNYL (PF) 50 MCG/ML 2 ML AMP ONE (07:25)
[2019-01-01] MEDS ORDERED: MORPHINE SULFATE (PF) 0.3 MG/0.3 ML SYR ONE (07:25)
[2019-01-01] MEDS ORDERED: PROPOFOL 10 MG/ML 20 ML VIAL IV ONE (07:25)
[2019-01-01] MEDS ORDERED: NEOSTIGMINE 1 MG/ML 10 ML VIAL ONE (07:25)
[2019-01-01] MEDS ORDERED: LIDOCAINE 1% INJ 10MG/ML (20 ML MDV) ONE (07:25)
[2019-01-01] MEDS ORDERED: VASOPRESSIN 20 UNIT/ML 1 ML VIAL SQ ONE (07:45)
[2019-01-01] MEDS ORDERED: BACITRACIN 500 UNIT/GM OINT 28.4 GM TUBE TOPICAL ONE (08:01)
[2019-01-01] MEDS ORDERED: LACTATED RINGERS 1,000 ML IV ONE (08:28)
[2019-01-01] MEDS ORDERED: SIMETHICONE 80 MG CHEWABLE PO PRN (08:54)
[2019-01-01] MEDS ORDERED: IBUPROFEN 600 MG TAB PO PRN (08:54)
[2019-01-01] MEDS ORDERED: ZOLPIDEM 5 MG TAB PO PRN (08:54)
[2019-01-01] MEDS ORDERED: METOCLOPRAMIDE 5 MG/ML 2 ML VIAL IVP PRN (08:54)
--- NOTE | 2019-01-01 08:54 | P.OP ---
Date of Procedure: 01/01/19 Preoperative Diagnosis: Severe cyclic pelvic pain, fibroid uterus Postoperative Diagnosis: Same, normal-appearing ovaries bilaterally, suspect adenomyosis Procedure(s) Performed: Vaginal hysterectomy Anesthesia: SUYAPAA Surgeon: Pamella Palacios Egg Pasteurizer #1: Valorie Tracy Estimated Blood Loss (ml): 200 IV fluids (ml): 900 Urine output (ml): 300 Pathology: none sent (Cervix and uterus) Condition: stable Disposition: PACU Operative Findings: Normal-appearing ovaries bilaterally Description of Procedure: Patient is brought to the operating suite after spinal with Duramorph is placed in the preoperative area. She's placed in the dorsal lithotomy position now after general anesthetic is administered. The cervix, vagina, perineal body, and lower abdomen are all prepped and draped in usual sterile fashion. The appropriate timeout is performed to assure proper patient and procedural identification. Urine hCG is negative. Antibiotics are given. Bladder is drained for approximately 250 mL of clear yellow urine. Weighted speculum was placed into the vagina and the anterior lip of the cervix is grasped with a double-tooth tenaculum. The cervix was injected circumferentially with a dilute Pitressin solution. A catawba blade scalpel is used to incise the tissue circumferentially with a V like positioning in the back, at 6:00. A sponge rolled finger is used to sweep the mucosa away from the underlying fascial plane. At all times the bladder swept well from the operative field to avoid bladder and/or ureteral injury. Peritoneum is entered at 6:00, suture tied with 2-0 Vicryl, and held with a hemostat. Large billed speculum was now placed into the peritoneal cavity. The uterosacral ligaments are identified, clamped cut and suture ligated, held laterally with a hemostat. Uterine vasculature is identified, skeletonized, clamped cut and suture ligated bilaterally. 2 additional pedicles are taken superior to the vessels. There is a fair amount of vascularity secondary to the fibroids. The anterior peritoneum was entered at 12:00. The uterus is "walked out" posteriorly. Jennifer clamps are used across the final pedicles. The cervix and uterus are removed and sent to pathology. The remaining pedicles are doubly tied, first with 0 Vicryl, flashed, and then retied with 0 Vicryl as well. Hemostasis is very good. Bilateral ovaries are inspected and noted to be normal, left in situ per the patient's wishes. Speculum is now changed to the shallow billed speculum. The 2-0 Vicryl is brought around in a pursestring fashion to close the peritoneum. The uterosacral ligaments are brought across to incorporate the opposite ligament as well as vaginal mucosa to support the vaginal cough. 3 additional [id number] sutures are done with 0 Vicryl for final vaginal cuff closure. Francois catheter is placed and urine is noted to be clear, an additional 50 mL is noted. Vagina is packed with one-inch iodophor gauze with basic tracing. All sponge needle and enhancement counts are correct at the end of the procedure. Patient is brought back to recovery room in stable condition with vital signs including pulse of 69, blood pressure 93/56.
[2019-01-01] MEDS ORDERED: diphenhydrAMINE 50 MG/ML 1 ML VIAL IVP ONE ×2 (09:12→09:36)
[2019-01-01 11:25] VITALS: BMI 47.1
[2019-01-01] MEDS: KETOROLAC 30 MG/ML 1 ML VIAL IVP PRN ×2 (13:29→21:31)
--- NOTE | 2019-01-02 04:57 | P.PN ---
Progress Note - Text Progress Note Date: 01/02/19 Pt without complaints. Pain controlled. Pruritis controlled. Denies weakness or headache. A/P POD # 1 s/p vaginal hysterectomy with spinal duramorph. - doing well
--- NOTE | 2019-01-02 07:40 | P.DS ---
Providers Date of admission: 01/02/19 00:29 Expected date of discharge: 01/02/19 Attending physician: Pamella Palacios Primary care physician: Daryn [place] [facility] Course: This is a 48-year-old white female who presented with cyclic severe pelvic pain, status post ablation years ago. Uterus was enlarged, containing multiple small fibroids. After consultation and deliberation, patient elected to proceed with vaginal hysterectomy. Please see dictated history and physical for details. Patient was admitted and underwent vaginal hysterectomy under my care yesterday. She did well intraoperatively. Ovaries appeared normal to inspection and were left in situ. She received a spinal with Duramorph. Please see my dictated operative note for details. This morning the patient appears well. Vaginal packing and Francois catheter been removed. She is voiding, ambulating and passing flatus without difficulty. Vital signs are stable and she is afebrile. Abdomen is soft and nontender, active bowel sounds. Extremities reveal no edema. There is no CVA tenderness. Patient is passing flatus and tolerating regular food. She is judged to be in good condition for discharge home. I have reminded her no intercourse, tampons or douching. She will use [id number] Advil or Aleve, or Motrin as needed for pain. She will call me with any brisk vaginal bleeding, with any pain not alleviated by [id number] products, with any fevers shakes or chills, or indeed with any difficulties questions or concerns. Patient Condition at Discharge: Good Plan - Discharge Summary New Discharge Prescriptions: No Action Losartan/Hydrochlorothiazide [Hyzaar 100-25 Tablet] 1 tab PO DAILY Atorvastatin [Lipitor] 10 mg PO DAILY Metoprolol Succinate [Toprol XL] 25 mg PO HS Acetaminophen Tab [Tylenol Tab] 500 mg PO Q6H PRN PRN Reason: Pain Discharge Medication List Losartan/Hydrochlorothiazide [Hyzaar 100-25 Tablet] 1 tab PO DAILY 05/02/17 [History] Atorvastatin [Lipitor] 10 mg PO DAILY 09/14/18 [History] Acetaminophen Tab [Tylenol Tab] 500 mg PO Q6H PRN 12/26/18 [History] Metoprolol Succinate [Toprol XL] 25 mg PO HS 12/26/18 [History] Follow up Appointment(s)/Referral(s): Pamella Palacios MD [STAFF PHYSICIAN] - 2 Weeks
[2019-01-02] MEDS: KETOROLAC 30 MG/ML 1 ML VIAL IVP PRN (08:07)
[2019-01-02 08:25] VITALS: BP 139/81; PULSE 62; RESP 16; TEMP 97.9
== END 2019-01-02 09:25 | disposition home or self-care (01) ==
LOC: OR 05:54 → 4FBP 09:06 → OR 01-02 00:28 → 4FBP 01-02 00:29
PROVIDERS: ADMIT Obstetrics & Gynecology; ATTEND Obstetrics & Gynecology
DX: D25.1 Intramural leiomyoma of uterus (principal); N80.0 Endometriosis of uterus; L29.9 Pruritus, unspecified; I10 Essential (primary) hypertension; E78.5 Hyperlipidemia, unspecified; E66.01 Morbid (severe) obesity due to excess calories; Z68.42 Body mass index [BMI] 45.0-49.9, adult; Z79.899 Other long term (current) drug therapy; Z98.51 Tubal ligation status; Z88.8 Allergy status to other drugs, medicaments and biological substances; Z88.0 Allergy status to penicillin; Z88.1 Allergy status to other antibiotic agents; Z88.2 Allergy status to sulfonamides; Z88.6 Allergy status to analgesic agent; Z82.49 Family history of ischemic heart disease and other diseases of the circulatory system; Z80.9 Family history of malignant neoplasm, unspecified
CPT/HCPCS: 58290; 94760; 81025; 88307; G0378; J2250 ×2; J1200; J2710; J2405; J2001; J2274; J3010; J1885 ×2; J1100; J0330; J2704; J0690; 86850; 86900; 86901

== ENCOUNTER 2019-10-07 09:58 | Emergency (ER) | payer BC ==
[2019-10-07 10:09] VITALS: RESP 18
[2019-10-07] MEDS ORDERED: SODIUM CHLORIDE 0.9% 1,000 ML IV STA (10:56)
[2019-10-07] MEDS ORDERED: KETOROLAC 30 MG/ML 1 ML VIAL IVP STA (10:56)
--- NOTE | 2019-10-07 11:11 | ED ---
Abdominal Pain HPI - General Chief Complaint: Abdominal Pain Stated Complaint: abdominal pain Time Seen by Provider: 10/07/19 10:13 Source: patient Mode of arrival: ambulatory Limitations: no limitations - History of Present Illness Initial Comments: Patient is a 49-year-old female presenting to the emergency Department with complaints of lower abdominal discomfort for the past 4 months. She states her symptoms have worsened the last 2 days so she decided to come to the ER to be seen. Patient states she started having symptoms of a UTI and then went to her PCP who checked her on 2 different occasions but her urine has been clean. Patient states she did followed up with her [facility] office who ordered a CT scan and that was normal. They also performed to genital swabs which also showed no abnormalities. Patient does have a history of a partial hysterectomy, and laparotomy, no other abdominal surgeries. She describes the pain as discomfort in her lower abdomen, occasionally sharp. She states the pain increases with any pushing or pulling movements. She has tried anti- inflammatories for pain relief but the medicine does not help. She denies fever, nausea, vomiting, diarrhea. She does admit to urinary frequency and dysuria. She denies any vaginal discharge. She has no other complaints at this time. Upon arrival to the ER, blood pressures 165/113, rest of vitals are normal. - Related Data Home Medications Medication Instructions Recorded Confirmed Losartan/Hydrochlorothiazide 1 tab PO DAILY 05/02/17 01/01/19 [Hyzaar 100-25 Tablet] Atorvastatin [Lipitor] 10 mg PO DAILY 09/14/18 01/01/19 Acetaminophen Tab [Tylenol Tab] 500 mg PO Q6H PRN 12/26/18 01/01/19 Metoprolol Succinate [Toprol XL] 25 mg PO HS 12/26/18 01/01/19 Allergies Allergy/AdvReac Type Severity Reaction Status Date / Time banana Allergy Unknown Verified 01/01/19 06:17 ciprofloxacin [From Cipro] Allergy "felt like Verified 01/01/19 06:17 needles under skin" Penicillins Allergy Rash/Hives Verified 01/01/19 06:17 Sulfa (Sulfonamide Allergy "felt like Verified 01/01/19 06:17 Antibiotics) needles under skin" sulfamethoxazole Allergy "felt like Verified 01/01/19 06:17 [From Bactrim] needles under skin" trimethoprim [From Bactrim] Allergy "felt like Verified 01/01/19 06:17 needles under skin" Review of Systems ROS Statement: Those systems with pertinent positive or pertinent negative responses have been documented in the HPI. ROS Other: All systems not noted in ROS Statement are negative. Past Medical History Past Medical History: Hyperlipidemia, Hypertension Additional Past Medical History / Comment(s): "borderline cholesterol", endometriosis History of Any Multi-Drug Resistant Organisms: None Reported Past Surgical History: Hysterectomy, Orthopedic Surgery, Tubal Ligation, Uterine Ablation Additional Past Surgical History / Comment(s): exploratory laparoscopy, arthroscopy left knee, Past Anesthesia/Blood Transfusion Reactions: No Reported Reaction Past Psychological History: No Psychological Hx Reported Smoking Status: Never smoker Past Alcohol Use History: Occasional Past Drug Use History: None Reported - Past Family History Sister(s) Family Medical History: Cancer Father Family Medical History: Cancer General Exam - General Exam Comments Initial Comments: GENERAL: Well-appearing, well-nourished and in no acute distress. HEAD: Atraumatic, normocephalic. EYES: Pupils equal round and reactive to light, extraocular movements intact, sclera anicteric, conjunctiva are normal. ENT: TMs normal, nares patent, oropharynx clear without exudates. Moist mucous membranes. NECK: Normal range of motion, supple without lymphadenopathy or JVD. LUNGS: Breath sounds clear to auscultation bilaterally and equal. No wheezes rales or rhonchi. HEART: Regular rate and rhythm without murmurs, rubs or gallops. ABDOMEN: Tender to palpation of the entire lower abdomen, suprapubic area. Soft, normoactive bowel sounds. No guarding, no rebound. No masses appreciated. : Deferred EXTREMITIES: Normal range of motion, no pitting or edema. No clubbing or cyanosis. NEUROLOGICAL: Normal speech, normal gait. PSYCH: Normal mood, normal affect. SKIN: Warm, Dry, normal turgor, no rashes or lesions noted. Limitations: no limitations Course Vital Signs 10/07/19 10/07/19 10:06 12:56 Temperature 97.7 F 98.2 F Pulse Rate 69 61 Respiratory 18 18 Rate Blood Pressure 165/113 185/90 O2 Sat by Pulse 100 98 Oximetry Medical Decision Making - Medical Decision Making Patient is a 49-year-old female presenting with lower abdominal pain 4 months, increase the last 2-3 days. Vitals are stable. Exam reveals lower abdominal and suprapubic tenderness. Computed tomography scan performed last week and [facility] showed no acute abnormalities. Patient has had recent normal genital swabs and culture which were normal. Laboratory today shows no acute abnormalities. Urine is normal. Ultrasound of the pelvis reveals no acute abnormalities. Discussed these findings with the patient. Patient was given pain control as well as fluids. I discussed with patient that I do not feel this is an infectious process. Given the chronic nature the issue I recommended follow up with PCP and/or urology. Patient is stable for discharge at this time and she is in agreement with this plan of care. Return parameters were discussed with the patient she verbalized understanding. Case discussed with Dr. Arellano. - Lab Data Result diagrams: 10/07/19 11:15 10/07/19 11:15 Lab Results 10/07/19 10/07/19 10/07/19 Range/Units 11:15 11:15 11:45 WBC 8.6 (3.8-10.6) k/uL RBC 4.87 (3.80-5.40) m/uL Hgb 14.8 (11.4-16.0) gm/dL Hct 44.2 (34.0-46.0) % MCV 90.8 (80.0-100.0) fL MCH 30.4 (25.0-35.0) pg MCHC 33.5 (31.0-37.0) g/dL RDW 12.5 (11.5-15.5) % Plt Count 325 (150-450) k/uL Neutrophils % 62 % Lymphocytes % 31 % Monocytes % 4 % Eosinophils % 2 % Basophils % 0 % Neutrophils # 5.3 (1.3-7.7) k/uL Lymphocytes # 2.6 (1.0-4.8) k/uL Monocytes # 0.4 (0-1.0) k/uL Eosinophils # 0.1 (0-0.7) k/uL Basophils # 0.0 (0-0.2) k/uL Sodium 139 (137-145) mmol/L Potassium 3.8 (3.5-5.1) mmol/L Chloride 102 (98-107) mmol/L Carbon Dioxide 27 (22-30) mmol/L Anion Gap 10 mmol/L BUN 20 H (7-17) mg/dL Creatinine 0.87 (0.52-1.04) mg/dL Est GFR (CKD-EPI)AfAm >90 (>60 ml/min/1.73 sqM) Est GFR (CKD-EPI)NonAf 79 (>60 ml/min/1.73 sqM) Glucose 85 (74-99) mg/dL Calcium 9.6 (8.4-10.2) mg/dL Total Bilirubin 0.3 (0.2-1.3) mg/dL AST 27 (14-36) U/L ALT 23 (4-34) U/L Alkaline Phosphatase 98 (38-126) U/L Total Protein 7.8 (6.3-8.2) g/dL Albumin 4.7 (3.5-5.0) g/dL Amylase 55 (30-110) U/L Lipase 258 (23-300) U/L Urine Color Yellow Urine Appearance Clear (Clear) Urine pH 6.0 (5.0-8.0) Ur Specific [place] 1.012 (1.001-1.035) Urine Protein Negative (Negative) Urine Glucose (UA) Negative (Negative) Urine Ketones Negative (Negative) Urine Blood Negative (Negative) Urine Nitrite Negative (Negative) Urine Bilirubin Negative (Negative) Urine Urobilinogen <2.0 (<2.0) mg/dL Ur Leukocyte Esterase Negative (Negative) Disposition Clinical Impression: Abdominal pain, Dysuria Disposition: HOME SELF-CARE Condition: Stable Instructions (If sedation given, give patient instructions): Abdominal Pain (ED) Additional Instructions: Please return to the Emergency Department if symptoms worsen or any other concerns. Continue to alternate between Tylenol and Motrin for discomfort. Follow-up with PCP and/or urology. Is patient prescribed a controlled substance at d/c from ED?: No Referrals: Daryn Urbina MD [Primary Care Provider] - 1-2 days Valentin Rm MD [STAFF PHYSICIAN] - 1-2 days
[2019-10-07 11:45] LABS: ALT 23 U/L (4-34); AST 27 U/L (14-36); African American GFR (CKD) >90 (>60 ml/min/1.73 sqM); Albumin 4.7 g/dL (3.5-5.0); Alkaline Phosphatase 98 U/L (38-126); Amylase 55 U/L (30-110); Anion Gap 10 mmol/L; Blood Urea Nitrogen 20 mg/dL (7-17); Calcium 9.6 mg/dL (8.4-10.2); Carbon Dioxide 27 mmol/L (22-30); Chloride 102 mmol/L (98-107); Glucose 85 mg/dL (74-99); Non-African American GFR(CKD) 79 (>60 ml/min/1.73 sqM); Potassium 3.8 mmol/L (3.5-5.1); Sodium 139 mmol/L (137-145); Total Bilirubin 0.3 mg/dL (0.2-1.3); Total Protein 7.8 g/dL (6.3-8.2)
[2019-10-07 11:48] LABS: Basophils % (A) 0 %; Eosinophils # (A) 0.1 k/uL (0-0.7); Eosinophils % (A) 2 %; HCT 44.2 % (34.0-46.0); HGB 14.8 gm/dL (11.4-16.0); Lymphocytes # (A) 2.6 k/uL (1.0-4.8); Lymphocytes % (A) 31 %; MCH 30.4 pg (25.0-35.0); MCHC 33.5 g/dL (31.0-37.0); MCV 90.8 fL (80.0-100.0); Mean Platelet Volume 7.1; Monocytes # (A) 0.4 k/uL (0-1.0); Monocytes % (A) 4 %; Neutrophils # (A) 5.3 k/uL (1.3-7.7); Neutrophils % (A) 62 %; Platelet Count 325 k/uL (150-450); RBC 4.87 m/uL (3.80-5.40); RDW 12.5 % (11.5-15.5); WBC 8.6 k/uL (3.8-10.6)
[2019-10-07 12:02] LABS: Appearance,Urine Clear (Clear); Bilirubin,Urine Negative (Negative); Blood,Urine Negative (Negative); Color,Urine Yellow; Glucose,Urine (UA) Negative (Negative); Ketones,Urine Negative (Negative); Leukocyte Esterase,Urine Negative (Negative); Nitrite,Urine Negative (Negative); Protein,Urine Negative (Negative); Specific Gravity,Urine 1.012 (1.001-1.035); Urobilinogen,Urine <2.0 mg/dL (<2.0)
--- NOTE | 2019-10-07 12:03 | US ---
EXAMINATION TYPE: US transvaginal DATE OF EXAM: 10/07/2019 COMPARISON: NONE CLINICAL HISTORY: pain x 3 mns, worse in 2 days. Pain partial hysterectomy. TECHNIQUE: Transvaginal TV EXAM MEASUREMENTS: Uterus: Surgically absent cm Endometrial Stripe: Surgically absent cm 1. Uterus: Surgically absent 2. Endometrium: Surgically absent 3. Right Ovary: Obscured by overlying bowel gas 4. Left Ovary: Obscured by overlying bowel gas 5. Bilateral Adnexa: wnl 6. Posterior cul-de-sac: wnl IMPRESSION: Uterus is surgically absent and the ovaries are obscured by bowel gas. No sonographic mandie picious masses seen.
[2019-10-07 12:58] VITALS: BP 185/90; PULSE 61; TEMP 98.2
== END 2019-10-07 12:56 | disposition home or self-care (01) ==
LOC: EC 09:58
DX: R10.30 Lower abdominal pain, unspecified (principal); R30.0 Dysuria; R35.0 Frequency of micturition; E78.5 Hyperlipidemia, unspecified; I10 Essential (primary) hypertension; Z88.0 Allergy status to penicillin; Z88.1 Allergy status to other antibiotic agents; Z88.2 Allergy status to sulfonamides; Z91.018 Allergy to other foods; Z79.899 Other long term (current) drug therapy; Z90.710 Acquired absence of both cervix and uterus
CPT/HCPCS: 36415; 80053; 82150; 83690; 85025; 81003; 76830; 99284; 96374; 96361; J1885

== ENCOUNTER → 2020-12-10 | Outpatient (CLI) | payer BC ==
--- NOTE | 2020-12-10 22:06 | US ---
EXAMINATION TYPE: US venous doppler duplex LE LT DATE OF EXAM: 12/10/2020 4:31 PM COMPARISON: NONE CLINICAL HISTORY: M47.817, I82.402. SIDE PERFORMED: left TECHNIQUE: The lower extremity deep venous system is examined utilizing real time linear array sonog tim with graded compression, doppler sonography and color-flow sonography. VESSELS IMAGED: Common Femoral Vein Deep Femoral Vein Greater Saphenous Vein * Femoral Vein Popliteal Vein Small Saphenous Vein * Proximal Calf Veins (* superficial vessels) Patient morbidly obese. Technically difficult study. Left Leg: Negative for DVT, unable to visualize calf veins or PTV's due to body habitus. Grayscale, color doppler, spectral doppler imaging performed of the deep veins of the left lower extr emity. There is normal flow, compressibility, vascular waveforms. IMPRESSION: Suboptimal study, no convincing evidence for acute DVT in the left lower extremity on ve ssels successfully visualized.
== END | disposition home or self-care (01) ==
LOC: RADUSWWP 16:01
PROVIDERS: ATTEND Physical Medicine & Rehabilitation
DX: I82.402 Acute embolism and thrombosis of unspecified deep veins of left lower extremity (principal)

== ENCOUNTER → 2021-08-05 | Outpatient (CLI) | payer BC | END | disposition home or self-care (01) | LOC: LABWHC1 13:58 | PROVIDERS: ATTEND Orthopaedic Surgery | DX: Z01.812 Encounter for preprocedural laboratory examination (principal) | CPT/HCPCS: 36415; 93005 ==

== ENCOUNTER → 2021-10-20 | Outpatient (CLI) | payer BC ==
[2021-10-20 16:51] VITALS: BP 168/107; PULSE 93; RESP 16; TEMP 98.1; BMI 59.8
--- NOTE | 2021-10-20 16:58 | P.HPBAR ---
Bariatric H&P - History & Physicial H&P Date: 10/20/21 History & Physicial: Visit/CC: initial Patient initial contact: Initial weight: 146.142 kg Initial weight in pounds: 322.19 Height: 5 ft 1.5 in Initial BMI: 59.8 Last weight: Current weight: 146.142 kg Current weight in pounds: 322.19 Current BMI: 59.8 [place] body weight (based on NIH guidelines): 48.761 kg Excess body weight loss: 0.0% The patient is a 51 year-old F who presents for Bariatric Assessment. DATE OF SERVICE: 10/20/2021 REASON FOR CONSULTATION: Initial bariatric evaluation. HISTORY OF PRESENT ILLNESS: Rosaura Mario is a 51-year-old female who comes with lifelong morbid obesity. She presents for the first time in consultation. She reports family history of throat cancer in her brother. She is looking into sleeve gastrectomy. She denies severe gastroesophageal reflux disease. She has back pain from 2 disks with degenerative joint disease. She denies pain along her hips. She had right knee and left knee surgery. No pain along her ankles. No trouble with her feet. She had a hysterctomy and ablation. She still has her appendix and gallbladder. She denies food allergies. No reports of dysphagia. At height of 5 feet 1.5 inches, her ideal body weight is 131 pounds. Her highest weight is 322 pounds, body mass index 59.9. She comes in 322 pounds. Her body mass index is 59.9. She is 191 pounds overweight. PAST MEDICAL HISTORY: 1. Morbid obesity due to excess calories 2. Body mass index 59.9 3. Hypertensive heart disease 4. Hyperlipidemia 5. Endometriosis 6. Osteoarthritis of bilateral knees PAST SURGICAL HISTORY: 1. Exploratory laparotomy 2. Left knee arthroscopy 3. Hysterectomy 4. Tubal ligation 5. Uterine ablation 6. Right knee arthroscopy HOME MEDICATIONS: Home Medications Medication Instructions Recorded Confirmed Losartan/Hydrochlorothiazide 1 tab PO QAM 05/02/17 10/21/21 [Hyzaar 100-25 Tablet] Atorvastatin [Lipitor] 10 mg PO DAILY 10/21/21 10/21/21 Previous Rx's Medication Instructions Recorded Sennosides [Senokot] 2 tab PO DAILY PRN #60 tablet 08/06/21 ALLERGIES: Allergies Allergy/AdvReac Type Severity Reaction Status Date / Time banana Allergy Unknown Verified 08/02/21 11:10 ciprofloxacin [From Cipro] Allergy "felt like Verified 08/02/21 11:10 needles under skin" Penicillins Allergy Rash/Hives Verified 08/02/21 11:10 Sulfa (Sulfonamide Allergy "felt like Verified 08/02/21 11:10 Antibiotics) needles under skin" sulfamethoxazole Allergy "felt like Verified 08/02/21 11:10 [From Bactrim] needles under skin" trimethoprim [From Bactrim] Allergy "felt like Verified 08/02/21 11:10 needles under skin" SOCIAL HISTORY: Denies tobacco use. FAMILY HISTORY: No family history of ulcerative colitis disease or Crohn's disease. Family history of morbid obesity. No lupus in the family. Brother had throat cancer from welding. REVIEW OF ORGAN SYSTEMS: CONSTITUTIONAL: At height of 5 feet 1.5 inches, her ideal body weight is 131 pounds. Her highest weight is 322 pounds, body mass index 59.9. She comes in 322 pounds. Her body mass index is 59.9. She is 191 pounds overweight. HEENT: Denies any active troubles with vision or hearing. ENDOCRINE: Denies diabetes. Denies hypothyroidism. CARDIOVASCULAR: Denies past reports of palpitations or heart attacks or chest pain. Hypertensive heart disease and hyperlipidemia. RESPIRATORY: Has daytime somnolence and snores. GASTROINTESTINAL: Denies any bright red blood per rectum. No diarrhea. No constipation. Has gastroesophageal reflux disease. GENITOURINARY: Denies bladder urgency. No recent blood in urine MUSCULOSKELETAL: Has lower back pain and joint pain. NEURO: Denies migraines. No seizure disorders. PSYCH: Denies depression. No suicidal ideation. RHEUMATOLOGIC: No lupus. No rheumatoid arthritis. HEMATOLOGIC: Denies any abnormal bleeding or bruising. Denies past history of DVTs. SKIN: No rash. No skin cancer. PHYSICAL EXAM: VITAL SIGNS: Height 5 foot 1.5 inches, weight 322 pounds. BMI 59.9 Vital Signs Temp 98.1 F 10/20/21 16:47 Pulse 93 10/20/21 16:47 Resp 16 10/20/21 16:47 BP 168/107 10/20/21 16:47 Pulse Ox GENERAL: Well-developed in no acute distress. HEENT: No scleral icterus. Extraocular movements grossly intact. Hears conversational speech. No nasal drainage. NECK: Supple without lymphadenopathy. CHEST: Nonlabored respirations with equal bilateral excursions. CARDIOVASCULAR: Regular rate and regular rhythm. Distal 2+ pulses. ABDOMEN: Obese, soft, nontender, nondistended. MUSCULOSKELETAL: No clubbing, cyanosis. NEURO: No focal or lateralizing signs. Cranial nerves 2 through 12 grossly within normal limits. PSYCH: Appropriate affect. Alert and oriented to person, place and time. SKIN: Good skin turgor. Well perfused. ASSESSMENT: 1. Morbid obesity due to excess calories 2. Body mass index 59.9 3. Hypertensive heart disease 4. Hyperlipidemia 5. Endometriosis 6. Osteoarthritis of bilateral knees PLAN: 1. Surgical options including a band, gastric bypass, sleeve gastrectomy were described in detail. Alternatives such as gastric balloon including duodenal switch were described. 2. The [place] bariatric surgical collaborative data and outcomes calculator were described with surgical options. 3. Recommend a bariatric metabolic panel to evaluate for micro- including macronutrient deficiencies. 4. For history of daytime somnolence, recommend evaluation and treatment for sleep apnea. 5. Dietary surveillance and counseling was reviewed. Increased protein intake over 65 grams daily advised. 6. Will need cardiac risk assessment. 7. Recommend medical risk assessment. 8. Psych assessment per insurance guidelines. 9. Recommend upper endoscopy. 10. Recommend 12-lead EKG. 11. Recommend urine nicotine testing pre-op 12. Recommend urine drug screen Thank you for this consultation. Past Medical History Past Medical History: Hypertension, Osteoarthritis (OA) Additional Past Medical History / Comment(s): "Borderline cholesterol", endometriosis. History of Any Multi-Drug Resistant Organisms: None Reported Past Surgical History: Hysterectomy, Orthopedic Surgery, Tubal Ligation, Uterine Ablation Additional Past Surgical History / Comment(s): Exploratory laparoscopy, arthroscopy left knee. Past Anesthesia/Blood Transfusion Reactions: No Reported Reaction Smoking Status: Never smoker - Past Family History Sister(s) Family Medical History: Cancer Father Family Medical History: Cancer Brother(s) Family Medical History: Cancer Surgical - Exam Vital Signs Temp Pulse Resp BP 98.1 F 93 16 168/107 10/20/21 16:47 10/20/21 16:47 10/20/21 16:47 10/20/21 16:47 Bariatric Checklist Checklist: Plan: Checklist: EGD: 1. Hiatal hernia: 2. H. Pylori: HgbA1c: Vitamin D: Smoking: Never smoker Primary care physician referral: Dr. Urbina Psychiatry clearance: Cardiology clearance: Sleep study: Diet journal: VTE risk score: VTE risk level: Rehab needs at discharge:
== END | disposition home or self-care (01) ==
LOC: BARWHC3 16:12
PROVIDERS: ATTEND Surgery Plastic and Reconstructive Surgery
DX: K44.9 Diaphragmatic hernia without obstruction or gangrene (principal)
CPT/HCPCS: 99203

== ENCOUNTER → 2024-08-19 | Outpatient (CLI) | payer BC ==
[2024-08-19 17:08] LABS: Partial Thromboplastin Time 25.4 sec (22.0-30.0); Prothrombin Time 10.9 sec (10.0-12.5)
[2024-08-20 03:33] LABS: ALT 60 U/L (8-44); AST 49 U/L (13-35); Albumin 4.5 g/dL (3.8-4.9); Albumin/Globulin Ratio 1.45 Ratio (1.60-3.17); Alkaline Phosphatase 105 U/L (41-126); BUN/Creat Ratio 18.78 Ratio (12.00-20.00); Blood Urea Nitrogen 16.9 mg/dL (9.0-27.0); Calcium 9.7 mg/dL (8.7-10.3); Carbon Dioxide 21.4 mmol/L (21.6-31.8); Chloride 102 mmol/L (96-109); Globulin 3.1 g/dL (1.6-3.3); Glucose 92 mg/dL (70-110); Potassium 4.1 mmol/L (3.5-5.5); Sodium 138 mmol/L (135-145); Total Bilirubin 0.4 mg/dL (0.3-1.2); Total Protein 7.6 g/dL (6.2-8.2)
[2024-08-20 05:05] LABS: HCT 47.4 % (37.2-46.3); HGB 15.4 g/dL (12.0-15.0); MCH 30.6 pg (27.0-32.0); MCHC 32.5 g/dL (32.0-37.0); MCV 94.2 FL (80.0-97.0); Mean Platelet Volume 10.9 FL (9.5-12.2); NRBC Per 100 WBC 0 X 10*3/uL (0.00-0.01); Platelet Count 287 X 10*3/uL (140-440); RBC 5.03 X 10*6/uL (4.10-5.20); RDW 12.9 % (11.5-14.5); WBC 9.38 X 10*3/uL (4.50-10.00)
== END | disposition home or self-care (01) ==
LOC: LABPAT 16:27
PROVIDERS: ATTEND Orthopaedic Surgery
DX: Z01.818 Encounter for other preprocedural examination (principal); Z22.322 Carrier or suspected carrier of Methicillin resistant Staphylococcus aureus
CPT/HCPCS: 80053; 85027; 85610; 85730

== ENCOUNTER → 2024-08-23 | Outpatient (CLI) | payer BC | END | disposition home or self-care (01) | LOC: LABPAT 14:29 | PROVIDERS: ATTEND Orthopaedic Surgery | DX: Z01.818 Encounter for other preprocedural examination (principal); Z22.322 Carrier or suspected carrier of Methicillin resistant Staphylococcus aureus; M17.11 Unilateral primary osteoarthritis, right knee | CPT/HCPCS: 87070 ==

== ENCOUNTER 2024-10-07 05:37 | Day surgery (SDC) | payer BC ==
[~2024-10-07 05:37] MED LIST changes: +TRANEXAMIC 1,000 MG/100ML-NACL 1,000 MG in SALINE 1 100ML.BAG IVPB PRN; -ceFAZolin IN SWFI 2 GM/20 ML SYRINGE IVP ONE
[2024-10-07] MEDS: IV FLUID CONTINUATION 1,000 ML IV ONE (06:21)
[2024-10-07] MEDS: LACTATED RINGERS 1,000 ML IV SCH (06:27)
[2024-10-07] MEDS: GABAPENTIN 300 MG CAP PO PRN (06:28)
[2024-10-07] MEDS: MELOXICAM 7.5 MG TAB PO PRN (06:28)
[2024-10-07] MEDS: ACETAMINOPHEN TAB 500 MG TAB PO PRN (06:28)
[2024-10-07] MEDS: ONDANSETRON 4 MG/2 ML VIAL IVP ONE (06:29)
[2024-10-07] MEDS: DEXAMETHASONE SOD PHOSPHATE 4 MG/ML 1 ML VIAL IV ONE (06:29)
[2024-10-07] MEDS: fentaNYL (PF) 50 MCG/ML 2 ML AMP IVP ONE (06:41)
[2024-10-07] MEDS: MIDAZOLAM 2 MG/2 ML VIAL IV ONE (06:41)
[2024-10-07] MEDS: ceFAZolin 3 GM in SODIUM CHLORIDE 0.9% 100 ML IVPB PRN (07:03)
[2024-10-07] MEDS: ceFAZolin 1,000 MG in SODIUM CHLORIDE 0.9% 1,000 ML IRRIGATION ONE (07:03)
[2024-10-07] MEDS: LACTATED RINGERS 1,000 ML IV ONE ×3 (07:52→08:56)
--- NOTE | 2024-10-07 08:28 | P.OP ---
Date of Procedure: 10/07/24 Preoperative Diagnosis: Severe osteoarthritis right knee Postoperative Diagnosis: Severe osteoarthritis, right knee Procedure(s) Performed: Right total knee arthroplasty Implants: [employer] II CR Oxinium cruciate retaining femoral component size 5, right [employer] nonporous tibial baseplate size 3, right [employer] II, XLPE Deep Dished articular insert, size 11 mm, Size 3-4, right [employer] Mariela II resurfacing patellar component, oval, 29 mm All components were cemented using Palacos R bone cement The articulation is Oxinium on polyethylene Anesthesia: ERUM Surgeon: Jesus Ivey Dispensing Operator #1: Jerri éPrez Estimated Blood Loss (ml): 50 Pathology: none sent Condition: stable Disposition: PACU Indications for Procedure: The patient's knee is end-stage, and conservative management has failed. The operation of knee replacement has been discussed at length in the office, as well as potential risks and complications. These are inclusive of, but not limited to: Infection, bleeding, scarring, discomfort, stiffness, blood vessel and nerve damage, need for further surgery, failure to relieve symptoms, persistence, recurrence, or worsening of problems, loosening, dislocation, wear, blood clot, pulmonary embolism, , gait dysfunction, stiffness, and other risks as discussed in the office. Patient elects to proceed and the consent form has been signed. Operative Findings: The operative findings are consistent with severe osteoarthritis of the right knee Description of Procedure: The patient was seen in the preoperative area, the consent was reviewed and the operative site was marked with a skin marker. The patient verified the procedure and the operative site. An adductor canal pain catheter and an iPACK block were placed by anesthesia in the preoperative area. The patient was then brought to the operating room and positioned on the operating room table in the supine position. Preoperative antibiotics and a gram of tranexamic acid were given intravenously. A general anesthetic was administered by the anesthesia department. Care was taken to make sure that all pressure points were adequately padded. A tourniquet was placed on the upper thigh and the lower extremity was prepped with ChloraPrep and draped in usual sterile fashion. A universal time-out was then performed which confirmed the patient's name, surgical site, ALLERGIES, and consent. The lower extremity was then exsanguinated and tourniquet was inflated to 250 mmHg. A standard anterior midline approach to the knee was performed. The skin and subcutaneous tissue were sharply dissected down to the patellar tendon. A medial parapatellar arthrotomy was then performed. The knee was then extended, the patellar was everted, and the knee was flexed. The infra-patellar fat pad was removed in order to enhance exposure. The anterior horns of both menisci were excised, and a release was performed to the posterior medial aspect of the knee. On gross visual inspection, there was complete loss of articular cartilage in the medial and patellofemoral joint spaces. There was also significant cartilage damage in the lateral compartment. There were multiple periarticular osteophytes globally about the knee which were then removed with a Ronguer. The femoral canal was then opened with the 9.5 mm intramedullary drill. The 8 mm intramedullary angeli was then inserted into the femoral canal with the distal femoral cutting guide set for 5 of valgus. The distal femoral cutting block was then pinned in place. The intramedullary angeli was then removed, and the distal femur was then cut. The cutting block was then removed and the cut was checked for symmetry. The resected bone was then measured to confirm the appropriate distal femoral resection. Next, the sizing guide was then placed and set for 3 external rotation based off of the epicondylar axis and Cimarron's line. Pins were then placed and the drill holes, and the femur was sized with the sizing stylus. The pins were then removed, and the sizing guide was then removed. The spikes of the appropriate size femoral block was then placed into the predrilled holes, and malleted into place. Two 45 mm pins were then placed into the fixation holes on the cutting block. An cassie wing was then used to ensure there would be no notching with the anterior cut. The anterior condyles were cut without notching. The anterior chord cut was then performed, followed by the posterior cut, posterior chamfer cut, and the anterior chamfer cut. The collateral ligaments were protected during the entire process. The cutting block was then removed. Any remaining bone and osteophytes were removed from the femur with a Ronguer. Attention was then directed to the tibia. The remaining ACL was removed with a Ronguer, and the tibia was then gently subluxed forward with a large bent knee retractor. Any remaining menisci were excised. The posterior lateral corner was cauterized in order to coagulate the lateral geniculate artery. The extra medullary tibial cutting guide was then placed, set for the appropriate rotation, slope, and depth of resection. The proximal tibia cutting guide was then pinned in place. Proximal tibia was then cut and sized. A curved osteotome was then used to remove any posterior osteophytes from the distal femur. The femoral trial was placed. A narrow saw blade was then used to remove the anterior intracondylar femoral bone. The CR notch trial was then placed. The tibial trial was placed with the appropriate-sized insert. The knee was able to fully extend and flex to 130 and was stable throughout all range of motion. The knee was then extended and the patella was everted. Patella was then measured, and then using an osteotomy guide, the patella was cut at the appropriate level. The patellar component was sized. The patellar drill guide was placed and the patella was drilled. The patella trial was then placed. The knee was then taken through range of motion with the patella trial and the patella tracked normally using the no thumbs technique. The patella trial was then removed. The knee was then flexed and lug holes were drilled through the femoral trial and the femoral trial was then removed. The tibial was then re- exposed, and the tibial broach guide was then pinned in place after it was set for the appropriate rotation to allow for the most coverage without overhang. The tibia was then reamed and broached. The femoral canal was plugged with autologous bone. The cut surfaces of bone were then irrigated with pulsatile lavage. The knee was also irrigated with Irrisept solution. The components were then opened, the cement was mixed. Cement was placed on the backside of the femoral, tibial, and patellar components. Cement was then applied to the tibial surface and pressurized into the surface using finger pressurization technique. The tibial component was then applied and excess cement was removed after it was impacted securely noted to be flush with the cut surface. In similar fashion, the cement was applied to the cut femoral surface, pressurized and using finger pressurization the component was impacted in place. Excess cement was removed. The polyethylene spacer was then implanted and locked into position. Patellar component was then applied in a similar technique and the patellar clamp was used to hold patella in place while the cement hardened. The knee was held in full extension while the cement hardened. Once the cement had fully hardened, the knee was reinspected. Any other cement extrusion was removed the final range of motion testing showed range of motion from 0-130 with excellent stability, both medial and laterally and appropriate alignment of the leg. Patella tracked normally. After the cemented hardened, the tourniquet was released and hemostasis was obtained. A second gram of transexamic acid was given intravenously. The knee was again irrigated. The knee was again taken through range of motion and found to be stable throughout all range of motion of 0-130, and the patella tracked normally. The fascia was then closed with 0 Vicryl followed by #2 strata fix suture. The subcutaneous tissue was closed with 3-0 Vicryl and 3-0 monocryl. Exofin glue was used for the skin and placed with the knee in flexion. After the glue had dried, and Optafoam silver impregnated dressing was applied. A lightly compressive dressing was applied using web roll and Jeison wrap. Patient was then transferred to the stretcher and taken to recovery room in stable condition. Sponge and needle counts were correct. The mobile unit assistant SUMAN Cast was required due the complexity surgery and the need for a skilled surgical first assistant. She assisted in positioning, draping, retraction, and closure of the wound.
[2024-10-07] MEDS ORDERED: NALOXONE 0.4 MG/ML 1 ML VIAL IV PRN (09:02)
[2024-10-07] MEDS ORDERED: HYDROmorphone 0.5 MG/0.5 ML SYRINGE IVP PRN ×2 (09:02)
[2024-10-07] MEDS: HYDROmorphone 0.5 MG/0.5 ML SYRINGE IVP PRN (09:27)
[2024-10-07] MEDS: ROPIVACAINE 1,100 MG, SODIUM CHLORIDE 0.9% 500 ML 330 ML, EMPTY PAIN BALL 1 EACH MISCELLANE PRN (09:31)
--- NOTE | 2024-10-07 09:54 | XR ---
EXAMINATION TYPE: XR knee limited RT DATE OF EXAM: 10/07/2024 CLINICAL HISTORY: Postoperative evaluation Two views of the right knee are submitted. Identified are changes of total knee arthroplasty with femoral and tibial components appearing well seated. Postsurgical soft tissue changes are noted. Alignment is anatomic. [facility], , 10/07/2024 9:52 AM
--- NOTE | 2024-10-07 10:14 | P.ANPRN ---
Procedure Note - Anesthesia - Nerve Block Performed Right Adductor Canal Infusion Time Out Performed: Yes (0640) Date of Procedure: 10/07/24 Procedure Start Time: 06:41 Procedure Stop Time: 06:46 Location of Patient: PreOp Indication: Acute Post-Operative Pain, Requested by Surgeon Specifically requested for management of pain by DrKasandra: Jesus Ivey Sedation Type: Sedate with meaningful contact maintained Preparation: Sterile Prep, Sterile Dressing Position: Supine Catheter Depth at Skin (cm): 7 Catheter: Indwelling Needle Types: Pajunk Needle Gauge: 18 Ultrasound used to visualize needle placement: Yes Ultrasound used to observe medication spread: Yes Injectate: 0.5% Ropivacaine (see comment for volume) (15cc+10cc nacl pf) Blood Aspirated: No Pain Paresthesia on Injection Noted: No Resistance on Injection: Normal Image Stored and Saved: Yes Events: Uneventful and Well Tolerated
--- NOTE | 2024-10-07 10:15 | P.ANPRN ---
Procedure Note - Anesthesia - Nerve Block Performed Right iPack Single Time Out Performed: Yes (0640) Date of Procedure: 10/07/24 Procedure Start Time: 06:47 Procedure Stop Time: 06:50 Location of Patient: PreOp Indication: Acute Post-Operative Pain, Requested by Surgeon Specifically requested for management of pain by DrKasandra: Jesus Ivey Sedation Type: Sedate with meaningful contact maintained Preparation: Sterile Prep Position: Supine Catheter: None Needle Types: Pajunk Needle Gauge: 21 Ultrasound used to visualize needle placement: Yes Ultrasound used to observe medication spread: Yes Injectate: 0.5% Ropivacaine (see comment for volume) (15cc+10cc nacl pf) Blood Aspirated: No Pain Paresthesia on Injection Noted: No Resistance on Injection: Normal Image Stored and Saved: Yes Events: Uneventful and Well Tolerated
[2024-10-07] MEDS: HYDROmorphone 1 MG/ML 1 ML SYRINGE IVP PRN (13:48)
[2024-10-07 14:01] VITALS: RESP 18
[2024-10-07] MEDS: SODIUM CHLORIDE 0.9% 1,000 ML IV SCH (14:13)
[2024-10-07] MEDS: ONDANSETRON 4 MG/2 ML VIAL IVP PRN (16:02)
[2024-10-07] MEDS: KETOROLAC 15 MG/ML 1 ML VIAL IVP PRN (16:04)
[2024-10-07] MEDS ORDERED: NON FORMULARY DRUG (Pentosan Polysulfate Sodium [Elmiron] 100 MG Capsule) PO PRN (16:15)
[2024-10-07] MEDS: ceFAZolin 3 GM in SODIUM CHLORIDE 0.9% 100 ML IVPB SCH (17:07)
[2024-10-07] MEDS: amLODIPine 10 MG TAB PO SCH (20:09)
[2024-10-07] MEDS: HYDROcodone/APAP 7.5-325MG 1 EACH TAB PO PRN (20:09)
[2024-10-07] MEDS: ASPIRIN 325 MG TAB PO SCH (20:09)
[2024-10-08] MEDS: HYDROcodone/APAP 7.5-325MG 1 EACH TAB PO PRN (06:23)
[2024-10-08 07:34] VITALS: BP 124/67; PULSE 85; TEMP 98.2
--- NOTE | 2024-10-08 08:14 | P.PN ---
Progress Note - Text Progress Note Date: 10/08/24 (010) Anesthesiology Postop day 1 status post total knee arthroplasty with adductor canal catheter. Patient doing well. VAS 0 out of 10. Gross strength intact in lower extremity. Afebrile. Denies alterations in sensorium. Catheter site intact. Heart regular rate Lungs nonlabored Abdomen nondistended Assessment: Postop day 1 status post total knee arthroplasty with adductor canal catheter Plan: 1.All questions answered. Maintain catheter 2 more days with patient removal at home. Instructions to be given at discharge. 2.This note was dictated using Venuetastic software. Please be advised there is a potential for misspellings or errors in academic intern.
[2024-10-08 08:42] LABS: Basophils # (A) 0.02 X 10*3/uL (0.00-0.10); Basophils % (A) 0.1 %; Eosinophils # (A) 0 X 10*3/uL (0.04-0.35); Eosinophils % (A) 0 %; HCT 41.6 % (37.2-46.3); Lymphocytes % (A) 7.1 %; MCH 30.2 pg (27.0-32.0); MCHC 31.3 g/dL (32.0-37.0); MCV 96.5 FL (80.0-97.0); Mean Platelet Volume 10.3 FL (9.5-12.2); Monocytes # (A) 0.71 X 10*3/uL (0.20-1.00); Monocytes % (A) 5.1 %; NRBC Per 100 WBC 0 X 10*3/uL (0.00-0.01); Neutrophils # (A) 12.19 X 10*3/uL (1.80-7.70); Neutrophils % (A) 87.1 %; Platelet Count 265 X 10*3/uL (140-440); RBC 4.31 X 10*6/uL (4.10-5.20); RDW 13.2 % (11.5-14.5)
[2024-10-08 08:49] LABS: Blood Urea Nitrogen 17.9 mg/dL (9.0-27.0); Calcium 8.7 mg/dL (8.7-10.3); Carbon Dioxide 24.2 mmol/L (21.6-31.8); Chloride 104 mmol/L (96-109); Glucose 118 mg/dL (70-110); Sodium 138 mmol/L (135-145)
--- NOTE | 2024-10-08 10:22 | P.DS ---
Providers Expected date of discharge: 10/08/24 Attending physician: Jesus Ivey Consults: 10/07/24 09:02 Consult Physician Routine Consulting Provider: Nate Fernandez Consult Reason/Comments: medical management Do you want consulting provider notified?: Yes Primary care physician: Daryn Urbina - Discharge Diagnosis(es) (1) Osteoarthritis of right knee Current Visit: Yes Status: Acute (2) Status post total right knee replacement Current Visit: Yes Status: Acute Hospital Course: This is a 54-year-old female with known history of degenerative arthritis of the right knee. The patient presented for evaluation as an outpatient. After discussion and consideration patient elects to proceed with total knee arthroplasty. The patient is seen preoperatively by Dr. Ivey and medically cleared for surgery by their primary care physician. Patient is admitted to [facility] on 10/07/2024 for total knee arthroplasty. The procedure is performed without complication or sequelae. The patient is doing well postoperatively. Labs and vital signs are stable on day of discharge. On day of discharge patient's knee incision is healing well. There is minimal erythema. There is no drainage noted at this time. There is minimal soft tissue swelling to the knee. Patient has full foot and ankle motion without difficulty or pain. Calf is soft and nontender to palpation. Neurovascular status to the right lower extremity is intact. Patient is discharged home in good condition. Please see med rec for accurate list of home medications. Plan - Discharge Summary Discharge Rx Participant: Yes New Discharge Prescriptions: New HYDROcodone/APAP 7.5-325MG [Montara 7.5-325] 1 - 2 tab PO Q6H PRN #32 tab PRN Reason: Pain Aspirin 325 mg PO BID #60 tab Sennosides [Senokot] 2 tab PO DAILY PRN #60 tablet PRN Reason: Constipation Ketorolac [Toradol] 10 mg PO Q6HR #12 tab No Action Pentosan Polysulfate Sodium [Elmiron] 100 mg PO QAM PRN PRN Reason: pain/swelling Losartan Potassium [Cozaar] 100 mg PO HS amLODIPine [Norvasc] 10 mg PO HS Discharge Medication List Pentosan Polysulfate Sodium [Elmiron] 100 mg PO QAM PRN 09/03/24 [History] amLODIPine [Norvasc] 10 mg PO HS 09/03/24 [History] Losartan Potassium [Cozaar] 100 mg PO HS 10/02/24 [History] Aspirin 325 mg PO BID #60 tab 10/07/24 [Rx] HYDROcodone/APAP 7.5-325MG [Montara 7.5-325] 1 - 2 tab PO Q6H PRN #32 tab 10/07/24 [Rx] Ketorolac [Toradol] 10 mg PO Q6HR #12 tab 10/07/24 [Rx] Sennosides [Senokot] 2 tab PO DAILY PRN #60 tablet 10/07/24 [Rx] Follow up Appointment(s)/Referral(s): [facility] - 1-2 Days ([facility] call [facility] to schedule your in home physical therapy.) Jesus Ivey DO [Doctor of Osteopathic Medicine] - 2 Weeks Activity/Diet/Wound Care/Special Instructions: Weightbearing as tolerated with a walker. Leave dressing intact. Dressing may be removed by home care nurse or by patient in 7 days. Then change dressing twice daily until follow up. May shower with initial dressing intact and after removal. If dressing become saturated, please remove. Recommend use of compression stockings daily until follow up to help prevent swelling and blood clots. May remove at night before sleeping. Please take aspirin 325mg twice daily for 30 days to prevent blood clots. Please follow up with [facility] and call with any questions or concerns, . Discharge Disposition: HOME WITH HOME HEALTH SERVICES
== END 2024-10-08 12:38 | disposition home health service (06) ==
LOC: OR 05:37 → 4SSUR 13:07 → OR 10-08 12:38
PROVIDERS: ATTEND Orthopaedic Surgery
DX: M17.11 Unilateral primary osteoarthritis, right knee (principal); G89.18 Other acute postprocedural pain; I10 Essential (primary) hypertension; E78.5 Hyperlipidemia, unspecified; N30.10 Interstitial cystitis (chronic) without hematuria; J30.9 Allergic rhinitis, unspecified; E66.01 Morbid (severe) obesity due to excess calories; Z68.44 Body mass index [BMI] 60.0-69.9, adult; Z79.1 Long term (current) use of non-steroidal anti-inflammatories (NSAID); Z79.899 Other long term (current) drug therapy; Z98.890 Other specified postprocedural states; Z88.1 Allergy status to other antibiotic agents; Z88.0 Allergy status to penicillin; Z88.2 Allergy status to sulfonamides; Z88.8 Allergy status to other drugs, medicaments and biological substances; Z88.6 Allergy status to analgesic agent; Z91.030 Bee allergy status
CPT/HCPCS: 27447; 97161; 64999; 64448; 80048; 83735; 85025; 73560; C1713; C1776; C1751; J2250; J1100; J0690 ×3; J2405; J3010; J1171 ×3; J2795; J1885